=== PATIENT | female | born 1950 | race African-American/Black ===

== ENCOUNTER 2017-01-16 09:26 | Outpatient (CLI) | payer MEDICARE ==
--- NOTE | 2017-01-16 11:35 | Mammography Report ---
Screening mammogram: Routine views demonstrates a heterogeneously dense and symmetrically distributed fibroglandular pattern. There are bilateral focal areas of slightly stellate in both lateral projections and in the right CC view. Questionable correlation between the two projections. The findings are otherwise unremarkable. CAD used. Impression: Bilateral asymmetries. Recommendation: Additional compression imaging bilaterally. Ultrasound, if needed. Patient does not remember prior mammogram location. Due you have prior report and location? BI-RADS CATEGORY: 0 = Needs additional imaging evaluation ACR BI-RADS MAMMOGRAPHIC CODES: 0 = Needs additional imaging evaluation; 1 = Negative; 2 = Benign; 3 = Probably benign; 4 = Suspicious; 5 = Malignant; 6 = Known biopsy-proven malignancy COMMENT: 1. Dense breast tissue, i.e., adenosis, fibrocystic changes, etc., may obscure an underlying neoplasm. 2. Approximately 10% of cancers are not detected with mammography. 3. A negative mammography report should not delay biopsy if a clinically suspicious mass is present.
== END 2017-01-16 09:27 | disposition home or self-care (01) ==
LOC: MAMMO 09:26 → SPVWC 09:26
PROVIDERS: ATTEND Hospitalist
DX: Z12.31 Encounter for screening mammogram for malignant neoplasm of breast (principal)
CPT/HCPCS: 77067; G0202

== ENCOUNTER 2017-02-11 10:17 | Outpatient (CLI) | payer MEDICARE ==
--- NOTE | 2017-02-11 13:11 | Mammography Report ---
Bilateral diagnostic mammogram and bilateral targeted breast ultrasound. History: Recall for bilateral asymmetries. Findings: Spot compression images of the right breast demonstrate almost complete effacement of the previously noted asymmetric density. Sonographic evaluation of the area demonstrates no findings. On the left side, spot compression image of the density in the inferior breast demonstrates a vague residual asymmetry without suspicious mammographic features. Sonographic evaluation of the inferior half of the left breast demonstrates no findings. Impression: No suspicious imaging findings. BI-RADS code: 2. Recommendation: Annual screening.
== END 2017-02-11 10:18 | disposition home or self-care (01) ==
LOC: SPVWC 10:17
PROVIDERS: ATTEND Hospitalist
DX: R92.8 Other abnormal and inconclusive findings on diagnostic imaging of breast (principal)
CPT/HCPCS: 76642; G0204; 77066